=== PATIENT | female | born 1975 | race Caucasian/White ===

== ENCOUNTER → 2018-03-16 | Outpatient (CLI) | payer OTHER | LOC: CAT 07:38 | DX: E66.01 Morbid (severe) obesity due to excess calories (principal) ==

== ENCOUNTER 2018-04-12 05:29 | Inpatient (IN) | payer OTHER ==
[~2018-04-12] VITALS: Ht 167.6 cm; Wt 138.3 kg
[~2018-04-12 05:29] MED LIST: ADIPEX-P37.5 MG PO; LASIX 40 MG TAB40 M2 PO; MULTIVITAMINS PO; PROZAC 10 MG CA10 MG PO; WELLBUTRIN 100100 MG PO
[2018-04-12 09:51] LABS: HEMATOCRIT 31.4 % (37.0-47.0); HEMOGLOBIN 9.8 gm/dL (12.0-15.0); MCH 20.6 pg (26.0-34.0); MCV 66.4 fL (80.0-100.0); RBC 4.74 mil/uL (4.20-5.00); RDW 16.9 % (10.5-14.5); WBC 8.3 thou/uL (4.0-11.0)
[2018-04-12 13:16] VITALS: BP 114/64
[2018-04-12 19:25] VITALS: BP 145/78
[2018-04-12 19:45] VITALS: BP 147/89
[2018-04-12 20:00] VITALS: BP 152/93
[2018-04-12 20:15] VITALS: BP 159/94
[2018-04-13 00:09] VITALS: BP 112/63
[2018-04-13 04:30] VITALS: BP 119/65
[2018-04-13 05:43] LABS: ABSOLUTE NEUTROPHILS 9.6 thou/uL (1.4-8.2); BASOPHILS 0.1 % (0.0-2.0); HEMATOCRIT 28.2 % (37.0-47.0); HEMOGLOBIN 8.8 gm/dL (12.0-15.0); LYMPHOCYTES 7.9 % (24.0-44.0); MCH 20.8 pg (26.0-34.0); MCHC 31.1 g/dL (28.0-37.0); MONOCYTES 11.9 % (1.0-8.0); PLATELET COUNT 199 thou/uL (150-400); POLYS 80.1 % (36.0-66.0); RBC 4.21 mil/uL (4.20-5.00)
[2018-04-13 05:53] LABS: CALCIUM 8.1 mg/dL (8.5-10.1); CREATININE 0.7 mg/dL (0.6-1.0); POTASSIUM 4.1 mmol/L (3.5-5.1)
[2018-04-13 06:59] LABS: ANISOCYTOSIS 1+; HYPOCHROMASIA 3+; MICROCYTES 2+; OVALOCYTES OCCASIONAL
[2018-04-13 08:39] VITALS: BP 110/63
[2018-04-13 16:30] VITALS: BP 133/64
[2018-04-14 04:38] VITALS: BP 144/63
[2018-04-14 06:00] LABS: HEMATOCRIT 25.2 % (37.0-47.0); MCH 21.3 pg (26.0-34.0); MCHC 31.8 g/dL (28.0-37.0); MCV 67.1 fL (80.0-100.0); PLATELET COUNT 181 thou/uL (150-400); RBC 3.75 mil/uL (4.20-5.00); WBC 7.7 thou/uL (4.0-11.0)
[2018-04-14 06:32] LABS: CALCIUM 8.3 mg/dL (8.5-10.1); CREATININE 0.7 mg/dL (0.6-1.0); POTASSIUM 3.5 mmol/L (3.5-5.1)
[2018-04-14 07:28] VITALS: BP 128/60
[2018-04-14 08:54] LABS: ABSOLUTE NEUTROPHILS 5.4 thou/uL (1.4-8.2); PLATELET ESTIMATE NORMAL
[2018-04-14 08:55] LABS: ANISOCYTOSIS 1+; HYPOCHROMASIA 2+; MICROCYTES 2+
[2018-04-14] MEDS ORDERED: CARAFATE 1 GM TA1 G1 PO (09:15)
[2018-04-14] MEDS ORDERED: TRAMADOL 50 MG50 MG PO (09:15)
[2018-04-14] MEDS ORDERED: OMEPRAZOLE 20 M20 M1 PO (09:15)
[2018-04-14] MEDS ORDERED: HYDROCODONE-ACE15 ML PO (09:15)
[2018-04-14] MEDS ORDERED: ZOFRAN ODT4 MG DISSOLVE (09:15)
[2018-04-14 10:47] VITALS: BP 128/60
== END 2018-04-14 11:55 | disposition home or self-care (01) | DRG 621 ==
LOC: TBA 05:29 → 4W 05:29 → PRE 10:22 → 4W 19:11 → ENTRNSPT 04-14 11:35 → EDTRNSPTSTS 04-14 11:40 → 4W 04-14 11:55
PROVIDERS: Surgery
PROC: 0DB84ZZ Excision of Small Intestine, Percutaneous Endoscopic Approach (ICD-10-PCS; principal; 2018-04-12)
PROC: 0DNW4ZZ Release Peritoneum, Percutaneous Endoscopic Approach (ICD-10-PCS; principal; 2018-04-12)
PROC: 0D168ZA Bypass Stomach to Jejunum, Via Natural or Artificial Opening Endoscopic (ICD-10-PCS; principal; 2018-04-12)
PROC: 0DB64ZZ Excision of Stomach, Percutaneous Endoscopic Approach (ICD-10-PCS; principal; 2018-04-12)
DX: E66.01 Morbid (severe) obesity due to excess calories (principal); K66.0 Peritoneal adhesions (postprocedural) (postinfection); I10 Essential (primary) hypertension; E78.00 Pure hypercholesterolemia, unspecified; D64.9 Anemia, unspecified; E11.9 Type 2 diabetes mellitus without complications; Z98.84 Bariatric surgery status; Z90.49 Acquired absence of other specified parts of digestive tract; Z68.42 Body mass index [BMI] 45.0-49.9, adult; Z79.899 Other long term (current) drug therapy
CPT/HCPCS: 10047; 49000; 50010; 50101; 50249; 50386; 50455; 50558; 50739; 50740; 51437; 51489; 52265; 53310; 54022; 54118; 56525; 56526; 56641; 56719; 57092; 57130; 57131; 57154; 59999; 62110; 62900; 70005